=== PATIENT | female | born 1955 | race Caucasian/White ===

== ENCOUNTER 2018-03-14 20:05 | Emergency (ER) | payer OTHER ==
[~2018-03-14] VITALS: Ht 154.9 cm; Wt 52.2 kg
[~2018-03-14 20:05] MED LIST: ALBU90OI6 INH; CYCL10 PO; TIOT18 INH
[2018-03-14 20:22] LABS: BASOPHILS ABSOLUTE AUTO 0.08 K/mm3 (0.00-0.23); BASOPHILS PERCENT AUTO 1 % (0-2); EOSINOPHILS PERCENT AUTO 2 % (0-6); Hematocrit 45.6 % (33.0-51.0); Hemoglobin 14.4 g/dL (11.5-16.0); IMMATURE GRAN ABSOLUTE AUTO 0.05 K/mm3 (0.00-0.10); IMMATURE GRAN PERCENT AUTO 0 % (0-1); LYMPHOCYTES ABSOLUTE AUTO 6.21 K/mm3 (0.84-5.20); LYMPHOCYTES PERCENT AUTO 47 % (21-46); MONOCYTES ABSOLUTE AUTO 0.99 K/mm3 (0.16-1.47); MONOCYTES PERCENT AUTO 8 % (4-13); Mean Corpuscular HGB Conc 31.6 g/dL (31.5-36.5); Mean Corpuscular Volume 98 fL (80-100); Mean Platelet Volume 10.2 fL (9.1-12.4); NEUTROPHILS ABSOLUTE AUTO 5.53 K/mm3 (1.96-9.15); NEUTROPHILS PERCENT AUTO 42 % (41-73); Platelet Count 293 K/mm3 (150-400); RDW Coefficient Variation 13.3 % (11.7-14.2); RDW Standard Deviation 48.4 fL (35.1-46.3); Red Blood Cell Count 4.64 M/mm3 (3.80-5.20); White Blood Cell Count 13.16 K/mm3 (4.00-11.30)
[2018-03-14 20:39] LABS: Alanine Aminotransfer (ALT/SGP 54 U/L (12-78); Albumin, Blood 3.9 g/dL (3.4-5.0); Albumin/Globulin Ratio 1.1 (0.8-1.8); Alk Phos 76 U/L (50-136); Anion Gap 15 mmol/L (6-16); Aspartate Aminotrans (AST/SGOT 73 U/L (12-37); Bilirubin, Total 0.3 mg/dL (0.1-1.0); Blood Urea Nitrogen 18 mg/dL (8-24); Bun/Creatinine Ratio 18.4 (12.0-20.0); CO2, Blood 19 mmol/L (21-32); Calcium, Blood 8.8 mg/dL (8.5-10.1); Chloride, Blood 104 mmol/L (98-108); Creatinine, Blood 0.98 mg/dL (0.40-1.00); Globulin, Blood 3.4 g/dL (2.2-4.0); Glomerular Filtration Rate >60 (60-); Glucose, Blood 155 mg/dL (70-99); Magnesium, Blood 2.4 mg/dL (1.6-2.4); Potassium, Blood 3.9 mmol/L (3.5-5.5); Sodium, Blood 138 mmol/L (136-145); Total Protein, Blood 7.3 g/dL (6.4-8.2)
[2018-03-14] MEDS ORDERED: Prednisone20 MG PO (21:57)
== END 2018-03-14 23:46 | disposition home or self-care (01) ==
LOC: ER 20:05
PROVIDERS: Internal Medicine
DX: J98.01 Acute bronchospasm (principal); J44.9 Chronic obstructive pulmonary disease, unspecified; F17.210 Nicotine dependence, cigarettes, uncomplicated; Z79.51 Long term (current) use of inhaled steroids; Z79.899 Other long term (current) drug therapy
CPT/HCPCS: 71045; 80053; 83735; 85025; 93005; 93010; 94644; 96374; 96375; 99285-25; J2060; J2405; J2930

== ENCOUNTER 2024-05-31 18:04 | Inpatient (IN) | payer OTHER ==
[~2024-05-31] VITALS: Ht 149.9 cm; Wt 47.9 kg
[~2024-05-31 18:04] MED LIST changes: +Enoxaparin 40 MG/0.4 ML SYR SC SCH; +Prednisone20 MG PO
[2024-05-31] MEDS ORDERED: Ipratropium/Albuterol SulF 2.5-0.5MG/3 ML Amp INH PRN (18:25)
[2024-05-31] MEDS ORDERED: HYDHCL25 PO (18:36)
[2024-05-31] MEDS ORDERED: BUDESONIDE-FO10.2 G2 INH (18:36)
[2024-05-31] MEDS ORDERED: BUPROPION HCL200 M1 PO (18:37)
[2024-05-31 18:51] LABS: Base Excess Venous 4.3 mmol/L; Bicarbonate Venous 27.1 mmol/L (24.0-30.0); PCO2 Venous 48.6 mmHg (38-42); pH Blood Venous 7.39 (7.34-7.37)
[2024-05-31 19:01] LABS: BASOPHILS ABSOLUTE AUTO 0.04 K/mm3 (0.00-0.23); BASOPHILS PERCENT AUTO 1 % (0-2); EOSINOPHILS ABSOLUTE AUTO 0.04 K/mm3 (0.00-0.68); EOSINOPHILS PERCENT AUTO 1 % (0-6); Hematocrit 42.9 % (33.0-51.0); Hemoglobin 13.9 g/dL (11.5-16.0); IMMATURE GRAN ABSOLUTE AUTO 0.03 K/mm3 (0.00-0.10); IMMATURE GRAN PERCENT AUTO 1 % (0-1); LYMPHOCYTES ABSOLUTE AUTO 0.65 K/mm3 (0.84-5.20); LYMPHOCYTES PERCENT AUTO 12 % (21-46); MONOCYTES ABSOLUTE AUTO 0.57 K/mm3 (0.16-1.47); MONOCYTES PERCENT AUTO 11 % (4-13); Mean Corpuscular HGB 31.5 pg (26.0-34.0); Mean Corpuscular HGB Conc 32.4 g/dL (31.5-36.5); Mean Corpuscular Volume 97 fL (80-100); Mean Platelet Volume 10.7 fL (9.1-12.4); NEUTROPHILS ABSOLUTE AUTO 4.08 K/mm3 (1.96-9.15); NEUTROPHILS PERCENT AUTO 76 % (41-73); Platelet Count 212 K/mm3 (150-400); RDW Coefficient Variation 13.5 % (11.7-14.2); RDW Standard Deviation 48.5 fL (35.1-46.3); Red Blood Cell Count 4.41 M/mm3 (3.80-5.20); White Blood Cell Count 5.41 K/mm3 (4.00-11.30)
[2024-05-31 19:24] LABS: Albumin, Blood 3.1 g/dL (3.4-5.0); Albumin/Globulin Ratio 1.1 (0.8-1.8); Bilirubin, Total 1.1 mg/dL (0.1-1.0); Bun/Creatinine Ratio 32.3 (12.0-20.0); Creatinine, Blood 0.62 mg/dL (0.40-1.00); Globulin, Blood 2.8 g/dL (2.2-4.0); Potassium, Blood 4.4 mmol/L (3.5-5.5); Total Protein, Blood 5.9 g/dL (6.4-8.2)
[2024-05-31] MEDS ORDERED: MethylPREDNISolone Sod Succ 125 MG Vial IV ONE (19:25)
[2024-05-31] MEDS ORDERED: Albuterol 2.5 MG/3 ML VIAL INH SCH (19:25)
[2024-05-31] MEDS ORDERED: Azithromycin 500 MG in NS 250 ML IV ONE (19:25)
[2024-05-31] MEDS ORDERED: Ipratropium Bromide INH 0.02% 0.5 mg/2.5ML Vial INH SCH ×2 (19:25→23:00)
[2024-05-31] MEDS ORDERED: Acetaminophen 500 MG Tab PO ONE (19:25)
[2024-05-31] MEDS ORDERED: Furosemide 10 MG/ML 4ML Vial IV ONE (19:30)
[2024-05-31] MEDS ORDERED: CefTRIAXone Sodium 1,000 MG in NS 100 ML IV ONE (19:30)
[2024-05-31] MEDS ORDERED: NS 1,000 ML IV ONE ×2 (19:57→21:12)
[2024-05-31] MEDS ORDERED: levalbuterol HCL 1.25 MG/3 ML VIAL INH ONE (20:15)
[2024-05-31] MEDS ORDERED: Midazolam HCl 1MG / ML 2ML Vial IV ONE (20:45)
[2024-05-31 21:40] LABS: Base Excess Venous -0.7 mmol/L; Bicarbonate Venous 20.7 mmol/L (24.0-30.0); PCO2 Venous 73.3 mmHg (38-42); pH Blood Venous 7.18 (7.34-7.37)
[2024-05-31 22:40] VITALS: BP 102/81
[2024-05-31 23:00] VITALS: BP 106/89
[2024-05-31 23:30] VITALS: BP 106/94
[2024-05-31 23:45] VITALS: BP 109/90
[2024-05-31] MEDS ORDERED: FLU VACC TS2024-25(6MOS UP)/PF 45 MCG/0.5 ML SYRINGE IM ONE (23:50)
[2024-05-31] MEDS ORDERED: Ondansetron HCl 2 MG / ML 2ML Vial IV PRN (23:50)
[2024-05-31 23:54] LABS: Magnesium, Blood 2.2 mg/dL (1.6-2.4)
[2024-05-31] MEDS ORDERED: CefTRIAXone Sodium 1,000 MG in NS 100 ML IV SCH (23:55)
[2024-06-01] VITALS (50 sets, daily range): BP systolic 99–152; BP diastolic 77–139
[2024-06-01] MEDS ORDERED: Digoxin 0.25 MG/ML 2ML Amp IV SCH
[2024-06-01] MEDS ORDERED: Enoxaparin 40 MG/0.4 ML SYR SC SCH
[2024-06-01 00:32] LABS: Digoxin (Lanoxin) 0.06 ug/mL (0.80-2.00)
[2024-06-01] MEDS ORDERED: NS 250 ML IV PRN (00:45)
[2024-06-01 02:16] LABS: Influenza A, PCR NEGATIVE (NEGATIVE); Influenza B, PCR NEGATIVE (NEGATIVE); Resp Syncytial Virus, PCR NEGATIVE (NEGATIVE); SARS-Cov-2 (COVID-19) PCR, MMC NEGATIVE (NEGATIVE)
[2024-06-01 04:43] LABS: BASOPHILS ABSOLUTE AUTO 0.02 K/mm3 (0.00-0.23); BASOPHILS PERCENT AUTO 0 % (0-2); EOSINOPHILS PERCENT AUTO 0 % (0-6); Hematocrit 42.1 % (33.0-51.0); Hemoglobin 13.8 g/dL (11.5-16.0); IMMATURE GRAN ABSOLUTE AUTO 0.03 K/mm3 (0.00-0.10); IMMATURE GRAN PERCENT AUTO 0 % (0-1); LYMPHOCYTES ABSOLUTE AUTO 0.21 K/mm3 (0.84-5.20); LYMPHOCYTES PERCENT AUTO 3 % (21-46); MONOCYTES ABSOLUTE AUTO 0.52 K/mm3 (0.16-1.47); MONOCYTES PERCENT AUTO 6 % (4-13); Mean Corpuscular HGB 31.4 pg (26.0-34.0); Mean Corpuscular HGB Conc 32.8 g/dL (31.5-36.5); Mean Corpuscular Volume 96 fL (80-100); Mean Platelet Volume 10.6 fL (9.1-12.4); NEUTROPHILS ABSOLUTE AUTO 7.74 K/mm3 (1.96-9.15); NEUTROPHILS PERCENT AUTO 91 % (41-73); Platelet Count 195 K/mm3 (150-400); RDW Coefficient Variation 13.4 % (11.7-14.2); RDW Standard Deviation 47.7 fL (35.1-46.3); White Blood Cell Count 8.52 K/mm3 (4.00-11.30)
[2024-06-01 05:51] LABS: Albumin, Blood 2.8 g/dL (3.4-5.0); Albumin/Globulin Ratio 1.1 (0.8-1.8); Bilirubin, Total 1.1 mg/dL (0.1-1.0); Calcium, Blood 8.3 mg/dL (8.5-10.1); Creatinine, Blood 0.8 mg/dL (0.40-1.00); Globulin, Blood 2.6 g/dL (2.2-4.0); Potassium, Blood 3.8 mmol/L (3.5-5.5); Total Protein, Blood 5.4 g/dL (6.4-8.2)
[2024-06-01 06:16] LABS: Base Excess Venous 6.9 mmol/L; Bicarbonate Venous 28.6 mmol/L (24.0-30.0); PCO2 Venous 56.8 mmHg (38-42); pH Blood Venous 7.36 (7.34-7.37)
--- NOTE | 2024-06-01 06:31 | NUR ---
SHIFT SUMMARY PATIENT TO ICU 7 FROM ER AT APPROX 2240. PATIENT ALERT AND ORIENTED X4. SP02 97% ON BIPAP 16/6 4L, RR 23, LS COARSE. HR AFIB/FLUTTER 130-150s DIGOXIN GIVEN TWICE THIS SHIFT, HR CURRENTLY 110-120. BP HYPOTENSIVE ON ARRIVAL FROM ER, LEVOPHED INFUSING AT 15 MCG/MIN, CENTRAL LINE PLACED. LEVOPHED ON STANDBY AT APPROX 0300, BP STABLE SINCE. TEMP JOEL PLACED, 2700 MLS OUT SINCE INSERTION. PT INDEPENDENT WITH REPOSITIONING. DAUGHTER WAS AT BEDSIDE WHEN PATIENT ARRIVED. WILL START HEPARIN DRIP PER PHARMACY. CALL LIGHT IN REACH
[2024-06-01 06:35] LABS: International Normalized Ratio 1.6; Prothrombin Time Results 16.5 Sec (9.7-11.5)
[2024-06-01] MEDS ORDERED: Heparin Sodium,Porcine/0.5 NS 500 ML IV SCH (06:45)
[2024-06-01] MEDS ORDERED: Furosemide 10 MG/ML 4ML Vial IV SCH (09:00)
[2024-06-01] MEDS ORDERED: buPROPion HCL 150 MG TAB.SR.12H PO SCH (09:00)
[2024-06-01 11:59] LABS: Base Excess Venous 11.1 mmol/L; Bicarbonate Venous 31.8 mmol/L (24.0-30.0); PCO2 Venous 58.9 mmHg (38-42)
[2024-06-01] MEDS ORDERED: Saline Nasal Spray 45 ML PRN (12:35)
[2024-06-01] MEDS ORDERED: dilTIAZem HCL 60 MG TAB PO SCH (16:30)
[2024-06-01] MEDS ORDERED: Diltiazem HCl 5 MG / ML 5ML Vial IV ONE (17:35)
[2024-06-01] MEDS ORDERED: MethylPREDNISolone Sod Succ 125 MG Vial IV SCH (18:00)
--- NOTE | 2024-06-01 18:08 | NUR ---
SHIFT SUMMARY Pt off BIPAP most of the day. Placed back on in the afternoon d/t low O2. Breifly downgraded to PCU status but HR jumped up to 160s. Dr. Estrada called. IVP Cardizem given and gtt ordered. EKG obtained. Diuresed well throughout the day. Daughter at bedside and updated on plan of care.
[2024-06-01] MEDS ORDERED: Azithromycin 500 MG in NS 250 ML IV SCH (21:00)
[2024-06-01] MEDS ORDERED: Lactobacil 2-S.Thermo-Bifido 1 1 Cap PO SCH (21:00)
--- NOTE | 2024-06-01 21:14 | NUR ---
THIS RN ASSUMED CARE OF PT AT 1900. PT IS ALERT AND ORIENTED X4 AND VERY PLEASANT, FOLLOWS COMMANDS APPROPRIATELY. PT SOUNDS COURSE/DIMINISHED, ON 4L NC SATTING >92%, PT DENIES SHORTNESS OF BREATH. PT HEART RATE IS IN THE 80-90s IN A-FIB RATE CONTROLLED BY DILT DRIP, PT ALSO ON HEPARIN FOR A-FIB. PT DENIES CHEST PAIN. PT WAS ASKING FOR NASAL SPRAY. PT HAS A JOEL CATHETER DRAINING TO GRAVITY AND A CENTRAL LINE IN THE RIGHT IJ, CLEAN, DRY AND INTACT. NO OTHER INTERVENTIONS AT THIS TIME. PLAN OF CARE CONTINUED.
[2024-06-01] MEDS ORDERED: Dose Adjust by Pharmacy XX STA (21:27)
[2024-06-02] VITALS (15 sets, daily range): BP systolic 112–155; BP diastolic 66–97
[2024-06-02 04:10] LABS: BASOPHILS ABSOLUTE AUTO 0.02 K/mm3 (0.00-0.23); BASOPHILS PERCENT AUTO 0 % (0-2); EOSINOPHILS PERCENT AUTO 0 % (0-6); Hematocrit 39.8 % (33.0-51.0); Hemoglobin 12.9 g/dL (11.5-16.0); IMMATURE GRAN ABSOLUTE AUTO 0.09 K/mm3 (0.00-0.10); IMMATURE GRAN PERCENT AUTO 1 % (0-1); LYMPHOCYTES ABSOLUTE AUTO 0.54 K/mm3 (0.84-5.20); LYMPHOCYTES PERCENT AUTO 3 % (21-46); MONOCYTES ABSOLUTE AUTO 0.65 K/mm3 (0.16-1.47); MONOCYTES PERCENT AUTO 4 % (4-13); Mean Corpuscular HGB 31.5 pg (26.0-34.0); Mean Corpuscular HGB Conc 32.4 g/dL (31.5-36.5); Mean Corpuscular Volume 97 fL (80-100); NEUTROPHILS ABSOLUTE AUTO 14.79 K/mm3 (1.96-9.15); NEUTROPHILS PERCENT AUTO 92 % (41-73); Platelet Count 238 K/mm3 (150-400); RDW Coefficient Variation 13.6 % (11.7-14.2); RDW Standard Deviation 48.9 fL (35.1-46.3); White Blood Cell Count 16.09 K/mm3 (4.00-11.30)
--- NOTE | 2024-06-02 04:22 | NUR ---
PT SUMMARY PT IS ALERT AND ORIENTED X4, FOLLOWING COMMANDS. PT WORE BIPAP MOST OF THE NIGHT, WANTED TO TAKE A BREAK AT 0400. NO NEW ACUTE EVENTS TO REPORT OVERNIGHT. PLAN OF CARE CONTINUED.
[2024-06-02 05:00] LABS: Albumin, Blood 2.5 g/dL (3.4-5.0); Albumin/Globulin Ratio 0.9 (0.8-1.8); Bilirubin, Direct 0.2 mg/dL (0.0-0.3); Bilirubin, Indirect 0.3 mg/dL (0.1-0.7); Bilirubin, Total 0.5 mg/dL (0.1-1.0); Bun/Creatinine Ratio 37.8 (12.0-20.0); Calcium, Blood 8.5 mg/dL (8.5-10.1); Creatinine, Blood 0.82 mg/dL (0.40-1.00); Globulin, Blood 2.7 g/dL (2.2-4.0); Potassium, Blood 4.3 mmol/L (3.5-5.5); Total Protein, Blood 5.2 g/dL (6.4-8.2)
[2024-06-02] MEDS ORDERED: Dose Adjust by Pharmacy XX STA ×2 (05:16→13:34)
[2024-06-02] MEDS ORDERED: Nicotine 14 MG PATCH TOP SCH (09:00)
[2024-06-02] MEDS ORDERED: TraMADol HCl 50 MG Tab PO PRN (13:05)
[2024-06-02] MEDS ORDERED: Apixaban 5 MG Tab PO SCH (18:00)
--- NOTE | 2024-06-02 18:35 | NUR ---
SHIFT SUMMARY. PT CONTINUING TO DIURESE WELL. ON AND OFF BIPAP. CARDIOLOGY CONSULTED - COZAAR, JARDIANCE, AND TOPROL XL ADDED FOR MEDS. TRANSITIONED FROM HEPARIN GTT TO ELIQUIS. CENTRAL LINE PULLED. DAUGHTER AT BEDSIDE, UPDATED ON PLAN OF CARE.
--- NOTE | 2024-06-02 20:49 | NUR ---
THIS RN ASSUMED CARE OF PT AT 1900. PT IS ALERT AND ORIENTED X4, PT DAUGHTER IS AT BEDSIDE WELL. PT STATED THEY ARE FEELING BETTER AND HAD A GOOD DAY. PT IS IN A-FLUTTER 90-100s, PT DENIES CHEST PAIN, BLOOD PRESSURE STABLE AT 144/97. PT SOUNDS CLEAR/DIMINISHED, PT DENIES SHORTNESS OF BREATH, PT ON 4L NC SATTING >92%. PT DOES HAVE A JOEL CATHETER DRAINING TO GRAVITY. NO OTHER INTERVENTIONS AT THIS TIME. PLAN OF CARE CONTINUED.
[2024-06-03] VITALS (7 sets, daily range): BP systolic 131–156; BP diastolic 76–112
[2024-06-03 03:25] LABS: BASOPHILS ABSOLUTE AUTO 0.02 K/mm3 (0.00-0.23); BASOPHILS PERCENT AUTO 0 % (0-2); EOSINOPHILS PERCENT AUTO 0 % (0-6); Hemoglobin 13.4 g/dL (11.5-16.0); IMMATURE GRAN ABSOLUTE AUTO 0.11 K/mm3 (0.00-0.10); IMMATURE GRAN PERCENT AUTO 1 % (0-1); LYMPHOCYTES ABSOLUTE AUTO 0.46 K/mm3 (0.84-5.20); LYMPHOCYTES PERCENT AUTO 3 % (21-46); MONOCYTES ABSOLUTE AUTO 0.58 K/mm3 (0.16-1.47); MONOCYTES PERCENT AUTO 4 % (4-13); Mean Corpuscular HGB Conc 31.9 g/dL (31.5-36.5); Mean Corpuscular Volume 100 fL (80-100); Mean Platelet Volume 10.7 fL (9.1-12.4); NEUTROPHILS PERCENT AUTO 93 % (41-73); Platelet Count 231 K/mm3 (150-400); RDW Coefficient Variation 13.5 % (11.7-14.2); RDW Standard Deviation 50.3 fL (35.1-46.3); Red Blood Cell Count 4.19 M/mm3 (3.80-5.20); White Blood Cell Count 16.27 K/mm3 (4.00-11.30)
[2024-06-03 03:51] LABS: Free Thyroxine 0.91 ng/dL (0.70-1.60)
[2024-06-03 03:54] LABS: Albumin, Blood 2.5 g/dL (3.4-5.0); Albumin/Globulin Ratio 0.9 (0.8-1.8); Bilirubin, Total 0.6 mg/dL (0.1-1.0); Bun/Creatinine Ratio 37.1 (12.0-20.0); Calcium, Blood 8.6 mg/dL (8.5-10.1); Creatinine, Blood 0.81 mg/dL (0.40-1.00); Globulin, Blood 2.8 g/dL (2.2-4.0); Potassium, Blood 4.5 mmol/L (3.5-5.5); Thyroid Stimulating Hormone 0.138 uIU/mL (0.360-4.800); Total Protein, Blood 5.3 g/dL (6.4-8.2)
--- NOTE | 2024-06-03 04:19 | NUR ---
PT SUMMARY PT IS ALERT AND ORIENTED IN BED WATCHING TELEVISION. NO NEW ACUTE EVENTS TO REPORT OVERNIGHT. PT DID HAVE ONE MINOR PANICK ATTACK, THIS RN AND THE PT WERE ABLE TO GET THROUGH IT. NO OTHER INTERVENTIONS AT THIS TIME. PLAN OF CARE CONTINUED.
[2024-06-03] MEDS ORDERED: Morphine Sulfate 4 MG/1 ML Injection IV PRN (05:35)
--- NOTE | 2024-06-03 06:14 | NUR ---
PT CALLED RN INTO ROOM, PT WAS HAVING SHORTNESS OF BREATH, SLIGHT CHEST PRESSURE, BLOOD PRESSURE WAS RISING AND PT ALSO FEELING DIZZY. STAT EKG WAS OBTAINED AND SHOWED A-FLUTTER IN THE 90s. NOTIFIED, AIRVO STARTED ON PT, PT ALREADY STATED THEY ARE FEELING BETTER AND BLOOD PRESSURE WAS ALREADY DROPPING. NO OTHER INTERVENTIONS AT THIS TIME.
[2024-06-03] MEDS ORDERED: Losartan Potassium 25 MG Tab PO SCH (09:00)
[2024-06-03] MEDS ORDERED: Empagliflozin 10 MG TAB PO SCH (09:00)
[2024-06-03] MEDS ORDERED: Metoprolol Succinate 25 MG TABCR PO SCH (09:00)
[2024-06-03] MEDS ORDERED: Bisacodyl 10 MG Supp PR PRN (09:40)
[2024-06-03] MEDS ORDERED: Losartan Potassium 25 MG Tab PO ONE (10:00)
[2024-06-03] MEDS ORDERED: Metoprolol Succinate 50 MG TABCR PO SCH (16:00)
--- NOTE | 2024-06-03 18:15 | NUR ---
SHIFT SUMMARY Legal Administrative Assistant increased medications today, HR better controlled. Will start PO lasix tomorrow. Diuresing well today. Freqently desaturating to low 80s with any movement or talking. On airvo, not wanting to go back on BiPAP. Worked with PT. Daughters updated on patient condition Education about COPD and HF gone over with patient, expressing understanding and asking questions.
[2024-06-03] MEDS ORDERED: Docusate Sodium 100 MG Cap PO SCH (21:00)
[2024-06-03] MEDS ORDERED: Sennosides 8.6 MG Tab PO SCH (21:00)
[2024-06-04 03:27] LABS: BASOPHILS ABSOLUTE AUTO 0.03 K/mm3 (0.00-0.23); BASOPHILS PERCENT AUTO 0 % (0-2); EOSINOPHILS PERCENT AUTO 0 % (0-6); Hematocrit 45.2 % (33.0-51.0); Hemoglobin 14.1 g/dL (11.5-16.0); IMMATURE GRAN ABSOLUTE AUTO 0.09 K/mm3 (0.00-0.10); IMMATURE GRAN PERCENT AUTO 1 % (0-1); LYMPHOCYTES ABSOLUTE AUTO 0.57 K/mm3 (0.84-5.20); LYMPHOCYTES PERCENT AUTO 4 % (21-46); MONOCYTES ABSOLUTE AUTO 0.68 K/mm3 (0.16-1.47); MONOCYTES PERCENT AUTO 5 % (4-13); Mean Corpuscular HGB 31.4 pg (26.0-34.0); Mean Corpuscular HGB Conc 31.2 g/dL (31.5-36.5); Mean Corpuscular Volume 101 fL (80-100); Mean Platelet Volume 10.5 fL (9.1-12.4); NEUTROPHILS ABSOLUTE AUTO 13.68 K/mm3 (1.96-9.15); NEUTROPHILS PERCENT AUTO 91 % (41-73); Platelet Count 236 K/mm3 (150-400); RDW Standard Deviation 48.9 fL (35.1-46.3); Red Blood Cell Count 4.49 M/mm3 (3.80-5.20); White Blood Cell Count 15.05 K/mm3 (4.00-11.30)
[2024-06-04 03:45] LABS: Albumin, Blood 2.7 g/dL (3.4-5.0); Albumin/Globulin Ratio 0.8 (0.8-1.8); Bilirubin, Total 0.3 mg/dL (0.1-1.0); Bun/Creatinine Ratio 47.5 (12.0-20.0); Calcium, Blood 9.3 mg/dL (8.5-10.1); Creatinine, Blood 0.72 mg/dL (0.40-1.00); Globulin, Blood 3.2 g/dL (2.2-4.0); Potassium, Blood 4.8 mmol/L (3.5-5.5); Total Protein, Blood 5.9 g/dL (6.4-8.2)
[2024-06-04] MEDS ORDERED: Losartan Potassium 25 MG Tab PO SCH ×2 (09:00→14:00)
[2024-06-04] MEDS ORDERED: Furosemide 20 MG Tab PO SCH (09:00)
[2024-06-04 09:23] VITALS: BP 153/101
[2024-06-04 12:31] VITALS: BP 157/87
--- NOTE | 2024-06-04 12:33 | NUR ---
REASSESSMENT PT'S OXYGEN HAS BEEN 98-100% AT REST SO HFNC HAS BEEN TITRATED DOWN THIS MORNING. SHE STILL DESATURATES QUICKLY WITH COUGHING OR ACTIVITY, SO OXYMASK AVAILABLE FOR HER TO PUT ON WHEN SHE HAS COUGHING EPISODES. PT WAS ABLE TO TRANSFER TO COMMODE AND THEN CHAIR. SHE HAS BEEN SITTING UP IN THE CHAIR SINCE BECAUSE SHE STATES IT IS MORE COMFORTABLE FOR HER. LUNGS STILL HAVE INSPIRATORY WHEEZES. NONPRODUCTIVE COUGH. AFLUTTER, MAP ABOVE 65. EATING WELL. BM THIS MORNING.
[2024-06-04 16:44] VITALS: BP 137/121
--- NOTE | 2024-06-04 17:17 | NUR ---
SHIFT SUMMARY PT SPENT MOST OF THE SHIFT IN THE CHAIR. SHE CONTINUES TO GET DYSPNEIC AND DROP HER SATURATIONS WITH MINIMAL ACTIVITY. OXYGEN HAD TO BE TITRATED BACK UP 5% THIS AFTERNOON TO MAINTAIN SPO2 ABOVE 90. LUNGS STILL HAVE AN INSPIRATORY WHEEZE. PT USING FLUTTER VALVE. REMAINS IN AFLUTTER, BP STABLE WIT MAP ABOVE 65. JOEL REMOVED AND PUREWICK PLACED. PT'S PAULETTE VISITED THIS AFTERNOON AND WAS UPDATED.
[2024-06-04 19:28] VITALS: BP 152/100
--- NOTE | 2024-06-04 19:35 | NUR ---
ASSUMPTION OF CARE: ASSUMED CARE OF PT AT 1900. PT ALERT AND ORIENTED X4, FOLLOWS DIRECTION AND IS PLEASANT WITH CARE. UP IN CHAIR CURRENTLY, SHIFTING IND. MAKES NEEDS KNOWN. ON AIRVO 40L, 45% WITH SPO2 >92%. INSPIRATORY WHEEZE NOTED, DENIES SOB. ASSISTANT CHIEF ENGINEER IN PLACE, AFLUTTER WITH HR 80'S, SBP 150'S DENIES CP/PRESSURE. PIVS INTACT AND SALINE LOCKED. PUREWICK IN PLACE, HAS NOT YET VOIDED SINCE CATHETER REMOVAL. TOLERATING PO INTAKE WITH NO C/O N/V. PT CURRENTLY PCU STATUS. DENIES PAIN. CALL LIGHT IN REACH.
[2024-06-05] VITALS (7 sets, daily range): BP systolic 134–165; BP diastolic 63–111
--- NOTE | 2024-06-05 05:35 | NUR ---
SHIFT SUMMARY: PT ABLE TO SLEEP ON AND OFF T/O THE SHIFT, WAS VERY UPSET ABOUT BEING WOKEN UP TO GIVE MIDNIGHT MEDICATION. PT ALERT AND ORIENTED X4, FOLLOWS DIRECTION. PT REMAINS IN CHAIR T/O THE NIGHT PER REQUEST, REFUSES TO GO BACK TO BED. UNABLE TO OBTAIN MORNING WEIGHT. REMAINS ON AIRVO SETTINGS UNCHANGED, SPO2 MID TO HIGH 90'S WITH OCCASIONAL DESAT TO LOW 80'S WITH MOVEMENT. PT CONVERTED FROM AFLUTTER TO SR AT 0124. HR 60-70'S. SBP 140-150. DENIES CP. DENIES SOB. DENIES PAIN. PT UNABLE TO VOID THIS SHIFT, STRAIGHT CATH DONE AT 0100 WITH 1500 ML OUTPUT. NO BM THIS SHIFT. PIVS INTACT AND SALINE LOCKED. TOLERATING PO INTAKE WITH NO C/O N/V. CALL LIGHT IN REACH.
--- NOTE | 2024-06-05 06:09 | NUR ---
UPDATE: PT CONFUSED THIS AM, REFUSING MORNING MEDICATION. STATES THAT SHE NEEDS HELP TO GET OUT OF HERE AND THIS RN IS TRYING TO KILL HER. PT MAKING PHONE CALLS TO 911 TRYING TO GET OUT OF HERE. PT REFUSING LAB DRAW THIS AM. ASKED PT WHY SHE NEEDS TO LEAVE AND SHE STATES "YOU KNOW WHY". CALL LIGHT IN REACH.
--- NOTE | 2024-06-05 07:46 | NUR ---
PROVIDER NOTIFICATION Spoke with Dr. Vilchis this AM, pt increasingly confused and aggitated overnight. Seems more clear and cooperative this AM with daughter at bedside. VBG ordered, steroids decreased, will cluster cares as much as possible and try to promote a good day/night cycle and encourage rest.
[2024-06-05 07:56] LABS: BASOPHILS ABSOLUTE AUTO 0.02 K/mm3 (0.00-0.23); BASOPHILS PERCENT AUTO 0 % (0-2); EOSINOPHILS PERCENT AUTO 0 % (0-6); Hematocrit 40.3 % (33.0-51.0); Hemoglobin 12.8 g/dL (11.5-16.0); Mean Corpuscular HGB 31.6 pg (26.0-34.0); Mean Corpuscular HGB Conc 31.8 g/dL (31.5-36.5); Mean Corpuscular Volume 100 fL (80-100); Mean Platelet Volume 10.5 fL (9.1-12.4); Platelet Count 201 K/mm3 (150-400); RDW Coefficient Variation 12.8 % (11.7-14.2); RDW Standard Deviation 47.2 fL (35.1-46.3); Red Blood Cell Count 4.05 M/mm3 (3.80-5.20); White Blood Cell Count 11.94 K/mm3 (4.00-11.30)
[2024-06-05 07:57] LABS: Base Excess Venous 25.8 mmol/L; Bicarbonate Venous 46.3 mmol/L (24.0-30.0)
[2024-06-05 07:58] LABS: IMMATURE GRAN ABSOLUTE AUTO 0.04 K/mm3 (0.00-0.10); IMMATURE GRAN PERCENT AUTO 0 % (0-1); LYMPHOCYTES ABSOLUTE AUTO 0.62 K/mm3 (0.84-5.20); LYMPHOCYTES PERCENT AUTO 5 % (21-46); MONOCYTES ABSOLUTE AUTO 0.69 K/mm3 (0.16-1.47); MONOCYTES PERCENT AUTO 6 % (4-13); NEUTROPHILS ABSOLUTE AUTO 10.57 K/mm3 (1.96-9.15); NEUTROPHILS PERCENT AUTO 89 % (41-73); PCO2 Venous 72.5 mmHg (38-42); pH Blood Venous 7.45 (7.34-7.37)
[2024-06-05] MEDS ORDERED: Losartan Potassium 50 MG Tab PO SCH (08:00)
[2024-06-05 08:22] LABS: Albumin, Blood 2.5 g/dL (3.4-5.0); Albumin/Globulin Ratio 0.9 (0.8-1.8); Bilirubin, Total 0.3 mg/dL (0.1-1.0); Bun/Creatinine Ratio 43.1 (12.0-20.0); Calcium, Blood 8.4 mg/dL (8.5-10.1); Creatinine, Blood 0.56 mg/dL (0.40-1.00); Globulin, Blood 2.8 g/dL (2.2-4.0); Potassium, Blood 3.8 mmol/L (3.5-5.5); Total Protein, Blood 5.3 g/dL (6.4-8.2)
[2024-06-05 08:30] LABS: BASOPHILS PERCENT MAN 0 % (0-2); EOSINOPHILS PERCENT MAN 0 % (0-6); LYMPHOCYTES ABSOLUTE MAN 0.11 K/mm3 (0.84-5.20); LYMPHOCYTES PERCENT MAN 1 % (21-46); MONOCYTES ABSOLUTE MAN 0.23 K/mm3 (0.16-1.47); MONOCYTES PERCENT MAN 2 % (4-13); NEUTROPHILS ABSOLUTE MAN 11.58 K/mm3 (1.96-9.15); SEG NEUTROPHILS PERCENT MAN 97 % (41-73); TOTAL CELLS COUNTED 100
[2024-06-05] MEDS ORDERED: MethylPREDNISolone Sod Succ 125 MG Vial IV SCH (09:00)
[2024-06-05] MEDS ORDERED: HyDROXyzine HCl 25 MG Tab PO PRN (09:15)
--- NOTE | 2024-06-05 17:36 | NUR ---
SHIFT SUMMARY Patient more oriented during the day. Pleasant and cooperative with cares, still occasionally visually hallucinating. Family at bedside majority of shift which seemed to help the patient. HR 50s-70s throughout the shift. Metoprolol doseage adjusted. Patient spent a few hours in the afternoon on BiPAP which greatly improved her WOB. Talked to patient about being more compliant with wearing it at night. Also got home anxiety meds ordered to help patient not be so panicked when using the machiene. Walking between bed, chair and commode with min. assist. Just gets winded very easily.
[2024-06-05] MEDS ORDERED: Carvedilol 6.25 MG Tab PO SCH (18:00)
[2024-06-05] MEDS ORDERED: Sacubitril/Valsartan 24 MG-26 MG Tab PO SCH (19:00)
--- NOTE | 2024-06-05 21:41 | NUR ---
THIS RN ASSUMED CARE OF PT AT 1900. PT IS ALERT AND ORIENTED X4, VERY PLEASANT, PT STATES THEY ARE READY TO GO TO BED. PT HAD AN EPISODE OF DELIRUM LAST NIGHT ON FIRE EXTINGUISHER CHARGER 06/04, ORDERS ARE IN THE LEAVE PT ALONE MUCH POSSIBLE. PT HEART RATE IN THE 70s, BLOOD PRESSURE STABLE AT 134/74, PT DENIES CHEST PAIN. PT SOUNDS DIMINISHED THROUGHOUT, ON AIRVO SATTING 88-92%, PT DENIES SHORTNESS OF BREATH BUT WILL DESAT ON ACTIVITY. NO OTHER INTERVENTIONS AT THIS TIME. PLAN OF CARE CONTINUED.
[2024-06-06] VITALS (14 sets, daily range): BP systolic 91–151; BP diastolic 63–126
[2024-06-06 03:20] LABS: Base Excess Venous 31.9 mmol/L; Bicarbonate Venous 49.6 mmol/L (24.0-30.0); PCO2 Venous 88.9 mmHg (38-42); pH Blood Venous 7.41 (7.34-7.37)
[2024-06-06 03:29] LABS: BASOPHILS ABSOLUTE AUTO 0.02 K/mm3 (0.00-0.23); BASOPHILS PERCENT AUTO 0 % (0-2); EOSINOPHILS PERCENT AUTO 0 % (0-6); Hematocrit 47.2 % (33.0-51.0); Hemoglobin 14.5 g/dL (11.5-16.0); IMMATURE GRAN ABSOLUTE AUTO 0.05 K/mm3 (0.00-0.10); IMMATURE GRAN PERCENT AUTO 0 % (0-1); LYMPHOCYTES ABSOLUTE AUTO 0.64 K/mm3 (0.84-5.20); LYMPHOCYTES PERCENT AUTO 6 % (21-46); MONOCYTES ABSOLUTE AUTO 0.64 K/mm3 (0.16-1.47); MONOCYTES PERCENT AUTO 6 % (4-13); Mean Corpuscular HGB 30.8 pg (26.0-34.0); Mean Corpuscular HGB Conc 30.7 g/dL (31.5-36.5); Mean Corpuscular Volume 100 fL (80-100); Mean Platelet Volume 10.5 fL (9.1-12.4); NEUTROPHILS ABSOLUTE AUTO 9.85 K/mm3 (1.96-9.15); NEUTROPHILS PERCENT AUTO 88 % (41-73); Platelet Count 230 K/mm3 (150-400); RDW Coefficient Variation 12.7 % (11.7-14.2); RDW Standard Deviation 47.5 fL (35.1-46.3); Red Blood Cell Count 4.71 M/mm3 (3.80-5.20)
--- NOTE | 2024-06-06 04:50 | NUR ---
PT SUMMARY PT IS ALERT AND ORIENTED X4, SLEEPING ON AND ON THROUGHOUT THE NIGHT, PT GOT UP MULTIPLE TIMES TO USE THE RESTROOM. PT ALSO DID GO BACK INTO A-FLUTTER RATE CONTROLLED AROUND 0330 BUT PT CONVERTED BACK INTO NORMAL SINUS RHYTHM OF 0451 HEART RATE IN THE 60s. NO OTHER NEW EVENTS TO REPORT OVERNIGHT. PLAN OF CARE CONTINUED.
[2024-06-06 05:10] LABS: Blood Urea Nitrogen 23 mg/dL (8-24); Bun/Creatinine Ratio 33.8 (12.0-20.0); Calcium, Blood 8.4 mg/dL (8.5-10.1); Chloride, Blood 96 mmol/L (98-108); Creatinine, Blood 0.68 mg/dL (0.40-1.00); Glomerular Filtration Rate 94 (60-); Glucose, Blood 167 mg/dL (70-99); Potassium, Blood 3.7 mmol/L (3.5-5.5); Sodium, Blood 147 mmol/L (136-145)
[2024-06-06 05:11] LABS: Anion Gap Unable to Calculate mmol/L (3-11); CO2, Blood >45 mmol/L (21-32)
[2024-06-06 08:31] LABS: Base Excess Venous 26.1 mmol/L; Bicarbonate Venous 46.7 mmol/L (24.0-30.0); PCO2 Venous 62.1 mmHg (38-42); pH Blood Venous 7.51 (7.34-7.37)
[2024-06-06] MEDS ORDERED: Metoprolol Succinate 50 MG TABCR PO SCH (09:00)
[2024-06-06] MEDS ORDERED: Calcium Chloride 10% 10 ML SYR IV ONE (10:35)
[2024-06-06] MEDS ORDERED: Calcium Chloride 10% 2,000 MG in NS 100 ML IV ONE (10:40)
[2024-06-06] MEDS ORDERED: AcetaZOLAMIDE Sodium 500 MG Vial IV SCH (11:41)
[2024-06-06] MEDS ORDERED: LORazepam 2 MG/ML 1ML Injection IV PRN (12:30)
[2024-06-06] MEDS ORDERED: Metoprolol Tartrate 1 MG/ML 5 ML VIAL IV PRN (12:30)
--- NOTE | 2024-06-06 18:31 | NUR ---
TRANSFER Report called to STEFANY Pepper in PCU and patient transferred with all belongings. Pt alert and oriented during the day. Steroid dose decreased to daily because patient is still markedly paranoid during the night. Spoke with family about having someone stay with patient during the night and they are attempting to organize that. HR between NS/Aflutter. Went into AFIB RVR 160s this afternoon, asymptomatic, gave 2.5 metoprolol. Enforced education about wearing BiPAP. Pt agreeable to wearing it for several hours today, otherwise on Airvo.
--- NOTE | 2024-06-06 19:08 | NUR ---
Transfered from ICU at approx 1820. Pt placed back on airvo and bipap set up at bedside. HR 130-150 after ambulation, slowing trending back down 110's. Will continue to monitor.
--- NOTE | 2024-06-06 21:09 | NUR ---
ASSUMPTION OF CARE PT LYING IN BED TALKING TO DAUGHTER, MIGUELITO. YOSSIDavid AND ORIENTED TO ALL. A FIB CONTROLLED AT THIS TIME 90-110 BUT IN 140S JUST BEFORE START OF SHIFT. WILL MONITOR. BP AT 124/71 (85). RESPIRATIONS REGULAR WITH GOOD SATURATION ON AIRVO 44/MIN AND 43% FIO2. PT AND DAUGHTER SAY PT HAS NOT SLEPT FOR DAYS AND SHE DOES NOT WANT TO WEAR BIPAP UNLESS ABSOLUTELY NECESSARY. PUREWICK IN PLACE TO SUCTION. NO CHEST PAIN/PRESSURE, SOB AT THIS TIME. NO AB PAIN, N/V. RIGHT AC PIV SEEMS TO HAVE LEAKED ON START OF ABX. WILL PULL WHEN ABLE. PT HAS CALL LIGHT HANDY.
--- NOTE | 2024-06-07 01:52 | NUR ---
UPDATE WHILE ON LUNCH BREAK, PT HR INCREASED TO 140-160'S WITH PALPITATIONS BUT NO ANGINA OR CHEST PRESSURE. CHARGE NURSE PULLED LOPRESSOR BUT DECIDED TO WAIT FOR POSSIBLE SELF-RESOLUTION, WHICH OCCURRED ABOUT 3 MINUTES AFTER RVR BEGAN. PT DOES NOT WANT TO USE THE BIPAP. SHE IS ON AIRVO 44/MIN AND 43% FIO2.
--- NOTE | 2024-06-07 03:00 | NUR ---
RVR UPDATE PT WENT INTO RVR AGAIN FOR 2ND TIME THIS EVENING. IN THE TIME IT TOOK TO TAKE A BP, 120/70 (83), AND TO START LOGGING INTO THE COMPUTER IN PREPARATION TO GIVE 5MG OF LOPRESSOR, THE PT'S RATE DECREASED TO 100 AND BELOW. WILL RELAY INFORMATION TO DAY SHIFT AND PROPOSE POSSIBLE PO MEDICATION FOR RATE CONTROL.
[2024-06-07 04:33] LABS: Base Excess Venous 21.6 mmol/L; Bicarbonate Venous 39.9 mmol/L (24.0-30.0); pH Blood Venous 7.44 (7.34-7.37)
[2024-06-07 04:38] LABS: BASOPHILS ABSOLUTE AUTO 0.02 K/mm3 (0.00-0.23); BASOPHILS PERCENT AUTO 0 % (0-2); EOSINOPHILS PERCENT AUTO 0 % (0-6); Hematocrit 45.3 % (33.0-51.0); Hemoglobin 14.5 g/dL (11.5-16.0); IMMATURE GRAN ABSOLUTE AUTO 0.06 K/mm3 (0.00-0.10); IMMATURE GRAN PERCENT AUTO 1 % (0-1); LYMPHOCYTES ABSOLUTE AUTO 1.37 K/mm3 (0.84-5.20); LYMPHOCYTES PERCENT AUTO 13 % (21-46); MONOCYTES ABSOLUTE AUTO 1.02 K/mm3 (0.16-1.47); MONOCYTES PERCENT AUTO 10 % (4-13); Mean Corpuscular HGB 31.4 pg (26.0-34.0); Mean Corpuscular Volume 98 fL (80-100); Mean Platelet Volume 10.5 fL (9.1-12.4); NEUTROPHILS ABSOLUTE AUTO 8.14 K/mm3 (1.96-9.15); NEUTROPHILS PERCENT AUTO 77 % (41-73); Platelet Count 245 K/mm3 (150-400); RDW Standard Deviation 46.8 fL (35.1-46.3); Red Blood Cell Count 4.62 M/mm3 (3.80-5.20); White Blood Cell Count 10.61 K/mm3 (4.00-11.30)
[2024-06-07 04:58] LABS: Albumin, Blood 2.3 g/dL (3.4-5.0); Albumin/Globulin Ratio 0.9 (0.8-1.8); Bilirubin, Total 0.6 mg/dL (0.1-1.0); Bun/Creatinine Ratio 27.2 (12.0-20.0); Calcium, Blood 8.7 mg/dL (8.5-10.1); Creatinine, Blood 0.92 mg/dL (0.40-1.00); Globulin, Blood 2.6 g/dL (2.2-4.0); Magnesium, Blood 2.1 mg/dL (1.6-2.4); Phosphorus, Blood 2.7 mg/dL (2.5-4.9); Potassium, Blood 3.3 mmol/L (3.5-5.5); Total Protein, Blood 4.9 g/dL (6.4-8.2)
--- NOTE | 2024-06-07 07:34 | NUR ---
PT LYING SLEEPING. AWAKES TO VOICE AND IS ALERT AND ORIENTED TO ALL, THOUGH SHE SAYS SHE FEELS ANXIOUS ABOUT SHIFT REPORT BEING DONE AROUND HER. A FIB CONTROLLED AT THIS TIME 90-100 BUT THERE WERE TWO EPISODES OF RVR DURING SHIFT, ONE LASTING 4 MINUTES, THE OTHER 2 MIN. BP STABLE, SYSTOLIC 120'S. RESPIRATIONS REGULAR WITH GOOD SATURATION ON AIRVO 44/MIN AND 30% FIO2. PT FOUGHT BIPAP ALL NIGHT. CUMULATIVE 2.5 TO 3 HOURS OF USE, EVEN AFTER BEING TOLD OF WORSENING LABS THIS MORNING. NO CHEST PAIN/PRESSURE, SOB AT THIS TIME. NO AB PAIN, N/V. RIGHT AC PIV REMOVED. PT HAS CALL LIGHT HANDY.
[2024-06-07] MEDS ORDERED: Potassium Chloride 20 MEQ TabCR PO STA (07:37)
[2024-06-07 07:40] VITALS: BP 124/82
[2024-06-07] MEDS ORDERED: MethylPREDNISolone Sod Succ 40 MG VIAL IV SCH (09:00)
[2024-06-07] MEDS ORDERED: Potassium Chloride 20 MEQ TabCR PO ONE (09:25)
[2024-06-07 11:58] VITALS: BP 104/74
--- NOTE | 2024-06-07 14:22 | NUR ---
MET WITH PATIENT AND FAMILY. SHE REPORTED THAT SHE WAS BEGINNING TO FEEL BETTER. SHE IS STILL NOT MEDICALL STABLE FOR DISCHARGE AT THIS TIME. WE DISSUSED COMPLIANCE WITH CPAP. FAMILY WAS CURIOUS ABOUT DISCHARGE PLANS AND IF PATIENT WAS GOING TO [facility] FOR SNF AT DISCHAGE. DISCUSSED CASE WITH CARE COORDINATION. PROVIDED THERAPUTIC LISTENING.
[2024-06-07] MEDS ORDERED: Acetaminophen 325 MG TABLET PO PRN (16:00)
[2024-06-07 16:07] VITALS: BP 131/77
--- NOTE | 2024-06-07 17:37 | NUR ---
SHIFT SUMMARY PATIENT IS A+OX4, ABLE TO MAKE NEEDS KNOWN. FREQUENT REPOSTIONING THROUGHOUT SHIFT. PATIENT WAS VOIDING IN BRIEF THIS AM AND NOT ALERTING STAFF. AFTER A CONVERSATION FROM THIS RN AND ENCOURAGEMENT FROM FAMILY PATIENT HAS BEEN USING THE BEDSIDE COMMAND THE REMAINDER OF THE SHIFT. PATIENT OXYGEN NEEDS HAVE TRENDED DOWN THIS SHIFT PATIENT IS NO LONGER ON AIRVO, CURRENTLY ON 4 LITERS NC SATURATING AT 94% ON CONTINUS PULSE OX. DR. SHEARER ROUNDED ON PATIENT THIS EVENING. PLAN TO DECREASE IV STEROID USE. PATIENT WAS ACCEPTED AT [facility] AND PLANS TO DISCHARGE THERE. ADULT DAUGHTERS VISITED FOR A FEW HOURS THIS AFTERNOON. WILL CONTINUE TO TREAT, CALL LIGHT IN REACH.
[2024-06-07 19:48] VITALS: BP 109/74
[2024-06-08] VITALS (8 sets, daily range): BP systolic 81–146; BP diastolic 63–92
[2024-06-08 04:33] LABS: Bun/Creatinine Ratio 29.2 (12.0-20.0); Calcium, Blood 8.7 mg/dL (8.5-10.1); Creatinine, Blood 0.68 mg/dL (0.40-1.00); Potassium, Blood 3.9 mmol/L (3.5-5.5)
--- NOTE | 2024-06-08 05:09 | NUR ---
shift summary. shift has been unremarkable. pt aox3-4, pleasant, cooperative with care, able to make needs known. has been able to rest comfortably throughout most of shift. vitals have remained stable. continues to run sinus on tele. pt has denied pain throughout shift. has maintained adequate saturation on 1-3 l o2 via nc throughout shift. steady sba to bsc. i+os charted appropriately. bed locked in lowest position. call light left within reach. continuing to monitor.
--- NOTE | 2024-06-08 07:42 | NUR ---
ASSUMING CARE ASSUMED CARE OF THIS PATIENT AT 0715. PATIENT IS ALERT + ORIENTATED X4 BUT STATES SHE IS SLEEPY. PATIENT WAS GIVEN A BED BATH BY YVONNE AND ASSISTED UP TO A RECLINER. CALL LIGHT IN REACH.
--- NOTE | 2024-06-08 10:39 | NUR ---
nurse note patient is refusing to work with OT since she already worked with PT today. call light in reach, will continue to treat.
--- NOTE | 2024-06-08 17:46 | NUR ---
SHIFT SUMMARY PATIENT IS A+OX4, ANXIOUS THIS SHIFT BUT ABLE TO MAKE NEEDS KNOWN. MOVES SELF AROUND IN BED. HEART RATE SUSTAINED IN THE 150'S AND PATIENT WAS PLACED ON AN AMIO DRIP RATE OF 33.6, BLOOD PRESSURE IMPROVING. CARDIOLOGLY ROUNDED ON PT THIS AFTERNOON. ON 3 LITERS NC AT THIS TIME 94% ON CONTINUS PULSE OX. PATIENT STATES SHE FEELS MUCH BETTER THEN BEFORE. CALL LIGHT IN REACH, WILL CONTINUE TO TREAT.
[2024-06-09] VITALS (7 sets, daily range): BP systolic 105–136; BP diastolic 65–87
--- NOTE | 2024-06-09 02:25 | NUR ---
PROVIDER NOTIFIED RN PEDIATRIC NOTIFIED OF PT'S HEART RATE IN 60'S WHILE ON AMIODARONE DRIP WITH BP TOLERATING. ORDER TO MAINTAIN DRIP WHILE HR STAYS ABOVE 50 BPM AND PT IS ASYMPTOMATIC. PROVIDER WOULD PREFER PO AMIODARONE IN THE MORNING AND TO HAVE DAY RN CONFIRM WITH ONCOMING RN PEDIATRIC. CHARGE AWARE. WILL GIVE REPORT TO ONCOMING RN.
[2024-06-09 05:45] LABS: Albumin, Blood 2.4 g/dL (3.4-5.0); Albumin/Globulin Ratio 0.9 (0.8-1.8); Bilirubin, Total 0.6 mg/dL (0.1-1.0); Bun/Creatinine Ratio 27.1 (12.0-20.0); Calcium, Blood 8.3 mg/dL (8.5-10.1); Creatinine, Blood 0.78 mg/dL (0.40-1.00); Globulin, Blood 2.7 g/dL (2.2-4.0); Potassium, Blood 4.1 mmol/L (3.5-5.5); Total Protein, Blood 5.1 g/dL (6.4-8.2)
[2024-06-09] MEDS ORDERED: Metoprolol Succinate 25 MG TABCR PO SCH (06:00)
--- NOTE | 2024-06-09 06:14 | NUR ---
SHIFT SUMMARY NO ACUTE CHANGES T/O SHIFT, AMIODARONE INFUSING PER ORDERS WITH HR RANGING 50-60'S IN SR- PER TELE. MORNING METOPROLOL HELD. PT DENIES CP/PRESSURE OR DIZZINESS. SPO2 ABOVE 95% ON 2L NC, DENIES SOB. IS SBA TO BATHROOM. MANUEL PO INTAKE DENIES N/V. REPORTS SLEEPING WELL DURING THIS NIGHT. PT CURRENTLY RESTING IN BED WITH CALL LIGHT IN REACH AND IS ABLE TO MAKE NEEDS KNOWN. WILL REPORT TO ONCOMING DAY RN
--- NOTE | 2024-06-09 07:25 | NUR ---
ASSUMED CARE OF PATIENT. SLEEPING DURING BEDSIDE REPORT. O2 2LPM/NC; CANNULA NOT IN NARES AND SATTING AT 92%. AMIO GTTs RUNNING. TELE SR/SB, PAC, PVC, JUNCTIONAL, BIGEM @ 61.
--- NOTE | 2024-06-09 07:42 | NUR ---
ORDERS FOR DAILY WEIGHT AND STRICT I/Os PLACED PER CARDIOLOGY NOTE 06/08/24.
[2024-06-09] MEDS ORDERED: Amiodarone HCl 200 MG Tab PO SCH (09:00)
[2024-06-09] MEDS ORDERED: PredniSONE 20 MG Tab PO SCH (09:00)
[2024-06-09] MEDS ORDERED: Spironolactone 12.5 MG TAB PO SCH (09:00)
--- NOTE | 2024-06-09 09:29 | NUR ---
PATIENT CONVERTED BACK TO F-FLUTTER. DR. LUJAN NOTIFIED. CONTINUE WITH JACKIE CASTELLANOS FOR NOW.
--- NOTE | 2024-06-09 10:32 | NUR ---
CALL TO CARDIOLOGY, DR STEWART: START PO AMIODARONE NOW AND COMPLETE CURRENT BAG OF IV.
--- NOTE | 2024-06-09 13:03 | NUR ---
CALL FROM SENIOR FIELD SERVICE ENGINEER: PT CONVERTED BACK TO SINUS.
--- NOTE | 2024-06-09 18:01 | NUR ---
A&Ox4. PLEASANT AND COOPERATIVE WITH CARE. CALLS APPROPRIATELY AND IS ABLE TO ADVOCATE NEEDS EFFECTIVELY. CONTINENT OF BOWEL AND BLADDER. LBM 06/08/24. SBA c FWW; INDEPENDENT AT BASELINE. MEDS WHOLE WITH APPLESAUCE, THOUGH SHE DOES REPORT THIS MAKES HER GAG AND SHE D PREFER TO TAKE THEM WHOLE WITH FLUIDS. SOME C / O GENERALIZED PAIN RELIEVED WITH PRN TRAMADOL x1. PO AMIODARONE ADDED TO REGIMEN; GTTs COMPLETED. CONVERTED FROM SINUS BACK TO A-FLUTTER/AFIB AND BACK TO SINUS. UP TO CHAIR TODAY. MAINTAINING SPO2 >8% ON 2LPM/NC. DESATURATES WHEN O2 CANNULA FALLS OUT OF NARES; REQUIRES SOME REDIRECTION TO REPLACE IN NARES. STILL UNABLE TO TOLERATE BiPap; RESPIRATOR DEPRESSION NOTED WITH BENZOS AND HYDROXYZINE CRITICAL INTx WITH AMIODARONE AND WAS DCd. DR. LUJAN NOTIFIED; NO NEW ORDERS PATIENT HAS NOT EXHIBITED ANY ANXIETY TODAY. CONSUMPTION OF MEALS WITHOUT NAUSEA OR VOMITING. PLAN TO DISCHARGE TO SNF; PT HAS BEEN ACCEPTED TO [facility] PENDING INSURANCE AUTHORIZATION. BED IN LOWEST POSITION, CALL LIGHT WITHIN REACH, ALL NEEDS MET. REPORT TO ONCOMING NURSE.
[2024-06-09] MEDS ORDERED: Albuterol 2.5 MG/3 ML VIAL INH PRN (20:25)
[2024-06-09] MEDS ORDERED: Albuterol 2.5 MG/3 ML VIAL INH SCH (20:25)
--- NOTE | 2024-06-10 03:42 | NUR ---
PLASTIC FIXTURE BUILDER SUMMARY VSS. QUIET UNLESS SPOKEN TO. RECEPTIVE TO TREATMENT. VOICED WANTED TO SLEEP IN THE RECLINER INSTEAD OF THE BED. HOB ELEVATED IN RECLINER. ALERT AND ORIENTED. UP TO BATHROOM TO VOID. ABLE TO AMBULATE WITHOUT ASSIST. BACK IN RECLINER WITH CALL LIGHT IN REACH. NO NOTED S/S ACUTE DISTRESS. LUNG SOUNDS DIMINISHED WITH SOME COUGHING UP PHLEGM. O2 SATS OVER 90%. O2 PER NC AT 2L/MIN. MED TELE A FLUTTER BUT ASYMPTOMATIC. HAS BEEN RESTING QUIETLY OTHERWISE. WILL CONTINUE TO MONITOR
[2024-06-10 04:45] VITALS: BP 102/71
[2024-06-10 08:52] VITALS: BP 100/66
[2024-06-10 12:50] VITALS: BP 111/78
[2024-06-10] MEDS ORDERED: ALBU2.5V5 INH (15:01)
[2024-06-10] MEDS ORDERED: Amiodarone HCl200 MG PO (15:07)
[2024-06-10] MEDS ORDERED: JARDIANCE10 MG PO (15:08)
[2024-06-10] MEDS ORDERED: METO25ER PO (15:08)
[2024-06-10] MEDS ORDERED: ELIQUIS5 M2 PO (15:08)
[2024-06-10] MEDS ORDERED: ENTRESTO 24 MG1 EACH PO (15:09)
[2024-06-10] MEDS ORDERED: DELTASONE20 MG PO (15:09)
[2024-06-10] MEDS ORDERED: ALDACTONE25 MG PO (15:10)
--- NOTE | 2024-06-10 15:47 | NUR ---
DISCHARGE: PT HAS BEEN CLEARED FOR DISCHARGE HOME BY PROVIDER. HOME O2 EVAL COMPLETED BY RT. MEDICATIONS FAXED TO [facility]. ALL IV ACCESS DC'd WNL. PT DRESSES SELF. PT PROVIDED W/DC PAPERWORK AND INSTRUCTIONS, V/U, ESCORTED FROM UNIT VIA W/C W/OUT INCIDENT.
[2024-06-16] MEDS ORDERED: Amiodarone HCl 200 MG Tab PO SCH (09:00)
[2024-06-23] MEDS ORDERED: Amiodarone HCl 200 MG Tab PO SCH (09:00)
== END 2024-06-10 15:34 | disposition home health service (06) | DRG 871 ==
LOC: ER 18:04 → ICUE 21:54 → PCU 06-06 18:18
PROVIDERS: Emergency Medicine; Family Medicine; Internal Medicine Critical Care Medicine; Student in an Organized Health Care Education/Training Program; ADMIT Internal Medicine
PROC: 3E03329 Introduction of Other Anti-infective into Peripheral Vein, Percutaneous Approach (ICD-10-PCS; principal; 2024-05-31)
PROC: 3E033XZ Introduction of Vasopressor into Peripheral Vein, Percutaneous Approach (ICD-10-PCS; 2024-05-31)
PROC: 5A09457 Assistance with Respiratory Ventilation, 24-96 Consecutive Hours, Continuous Positive Airway Pressure (ICD-10-PCS; 2024-05-31)
PROC: 5A0945A Assistance with Respiratory Ventilation, 24-96 Consecutive Hours, High Flow/Velocity Cannula (ICD-10-PCS; 2024-06-04)
DX: A41.9 Sepsis, unspecified organism (principal); G92.8 Other toxic encephalopathy; I50.23 Acute on chronic systolic (congestive) heart failure; J96.01 Acute respiratory failure with hypoxia; J96.02 Acute respiratory failure with hypercapnia; J18.9 Pneumonia, unspecified organism; K72.00 Acute and subacute hepatic failure without coma; I48.92 Unspecified atrial flutter; J44.1 Chronic obstructive pulmonary disease with (acute) exacerbation; J44.0 Chronic obstructive pulmonary disease with (acute) lower respiratory infection; R64 Cachexia; E87.0 Hyperosmolality and hypernatremia; E87.3 Alkalosis; I24.89 Other forms of acute ischemic heart disease; E44.0 Moderate protein-calorie malnutrition; I48.0 Paroxysmal atrial fibrillation; Z28.21 Immunization not carried out because of patient refusal; R65.20 Severe sepsis without septic shock; K76.1 Chronic passive congestion of liver; F40.240 Claustrophobia; F41.9 Anxiety disorder, unspecified; Z79.899 Other long term (current) drug therapy; Z87.891 Personal history of nicotine dependence
CPT/HCPCS: 0241U; 36415; 36556; 51701; 51703; 71045; 76705; 80048; 80053; 80076; 80162; 82330; 82803; 82947; 83605; 83735; 83880; 84100; 84145; 84439; 84443; 84484; 85025; 85610; 85730; 92610; 93005; 93010; 93306; 94640; 94644; 94660; 94664; 94760; 94761; 94762; 96365; 96367; 96375; 97110; 97161; 97165; 97530; 99285-25; A9270; C1751; J0282; J0456; J0696; J1120; J1160; J1644; J1650; J1940; J2250; J2919; J7030; J7050; J7060; J7512; J7614